=== PATIENT | male | born 1940 | race Caucasian/White ===

== ENCOUNTER 2020-07-24 11:18 | Day surgery (SDC) | payer MEDICARE, OTHER ==
[~2020-07-24] VITALS: Ht 165.1 cm; Wt 80.0 kg
[2020-07-24] VITALS (13 sets, daily range): BP systolic 102–136; BP diastolic 54–73
[2020-07-24] MEDS ORDERED: LORazepam 0.5 MG tablet PO PRN (11:40)
[2020-07-24] MEDS ORDERED: normal saline 1,000 ML IV SCH (11:40)
[2020-07-24] MEDS ORDERED: diphenhydrAMINE 25mg capsule PO PRN (11:40)
[2020-07-24] MEDS ORDERED: nitroGLYCERIN 0.4mg SUBLingual tab SL PRN (11:40)
[2020-07-24] MEDS ORDERED: albuterol 2.5 MG/3 ML nebule NEB PRN (11:45)
[2020-07-24] MEDS ORDERED: albuterol 2.5 MG/3 ML nebule NEB ONE (11:50)
[2020-07-24] MEDS ORDERED: HOME O2 (12:02)
[2020-07-24] MEDS ORDERED: ALBU90AE (12:02)
[2020-07-24] MEDS ORDERED: NEBULIZER (12:02)
[2020-07-24] MEDS ORDERED: CLOP75TA34 PO (12:02)
[2020-07-24] MEDS ORDERED: METO25TA6 PO (12:02)
[2020-07-24] MEDS ORDERED: SIMV-45 PO (12:02)
[2020-07-24] MEDS ORDERED: midazolam 1 mg/ML 2ml injection ONE ×2 (13:41→14:47)
[2020-07-24] MEDS ORDERED: fentaNYL/PF 50MCG/1 ML 2ML syringe ONE (13:41)
[2020-07-24] MEDS ORDERED: iohexol 350 MG/ML 50ML vial IV ONE (13:42)
[2020-07-24] MEDS ORDERED: LIDOcaine 1% (10mg/ml)w/preservative injection 20ml MDV ONE (13:42)
[2020-07-24] MEDS ORDERED: iohexol 350MG/ML 100ml bottle IV ONE ×2 (13:42→14:45)
[2020-07-24] MEDS ORDERED: hydrALAZINE 20mg/ml inj. IV ONE (15:03)
[2020-07-24] MEDS ORDERED: ondansetron/PF 4mg/2ml inj IV PRN (15:40)
[2020-07-24] MEDS ORDERED: OXAZEpam 15mg capsule PO PRN (15:40)
[2020-07-24] MEDS ORDERED: proCHLORperazine 10 MG/2 ml inj IV PRN (15:40)
[2020-07-24] MEDS ORDERED: HYDROcodone/acetaminophen 5mg/325mg tablet PO PRN (15:45)
[2020-07-24] MEDS ORDERED: HYDROcodone/acetaminophen 10/325mg tab PO PRN (15:45)
== END 2020-07-24 20:30 | disposition home or self-care (01) ==
LOC: SSTAY O 11:18
PROVIDERS: ATTEND Internal Medicine Cardiovascular Disease
DX: R94.39 Abnormal result of other cardiovascular function study (principal); R07.89 Other chest pain; I25.810 Atherosclerosis of coronary artery bypass graft(s) without angina pectoris; I25.82 Chronic total occlusion of coronary artery; G62.9 Polyneuropathy, unspecified; M54.30 Sciatica, unspecified side; I10 Essential (primary) hypertension; E78.5 Hyperlipidemia, unspecified; J43.9 Emphysema, unspecified; K80.20 Calculus of gallbladder without cholecystitis without obstruction; N20.0 Calculus of kidney; Z87.891 Personal history of nicotine dependence; Z88.8 Allergy status to other drugs, medicaments and biological substances; Z79.899 Other long term (current) drug therapy; Z79.01 Long term (current) use of anticoagulants; Z82.3 Family history of stroke
CPT/HCPCS: 71250; 93459; 94640; 99152; 99153; C1760; C1769; J0360; J1644; J2001; J2250; J2405; J3010; Q9967; 94760; A4620; A6258